=== PATIENT | female | born 2000 | race Caucasian/White ===

== ENCOUNTER 2024-08-11 14:56 | Outpatient (AMB) | payer OTHER, SELFPAY ==
--- NOTE | 2024-08-11 14:56 | MHC.OFFVIS ---
Vital Signs 08/11/24 15:44 Height 5 ft Weight 131 lb BMI 25.6 Intake Visit Reasons: pelvic pain/External Referral Warp Starter Required: No Warp Starter Services: Warp Starter Present Information Interpreted: clinical only Yoker Machine Operator: Yoker Machine Operator Present Allergies Penicillins [PENICILLINS] Allergy (Intermediate, Unverified 08/11/24 15:01) HIVES Medication List - Last Reviewed 08/11/24 by Jaleel Nicholson CMA acetazolamide 250 mg PO BID potassium chloride (Klor-Con) 20 mEq PO DAILY potassium chloride ER 10 mEq PO BID Is last menstrual period known: Yes Last menstrual period: 07/15/24 HPI HPI pelvic pain/External Referral: Details: Patient is here as a referral for 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 She is 23 years old not sexually active gets regular menses. She does have periodic pain on the left side and she has noticed that sometimes it is in between periods so in googling as she was wondering if it was connected to ovulation. She has a history of paralysis that is related to low potassium and whoever is with her needs to administer a little pack at potassium in order to bring it backup again. For this reason she has not been working. She is in the midst of trying to find new care provider's because she aged out of the previous ones she has a neurologist who she sees and she is working on finding a aluminum hydroxide process operator. She has never had a pelvic exam but she is open to it today she is not having any physical symptoms she feels she is due for her period any day now she is not experiencing pain side this month or now. She and her mother theorized the whole issue with the paralysis related to the potassium started after her 1st Gardasil shot which was also her last gardisil shot. [facility] Medical History (Updated 08/11/24 @ 16:22 by Cindy Ovalle CNM) Fatigue Night sweats Fibromyalgia Periodic paralysis Female Reproductive History Menstrual Age of Menarche: 11 Duration of menses: 3-5 days Date of last menstrual period: 07/15/24 control method: none Total pregnancies: 0 Physical Exam Vital Signs: Last Vital Signs BP 5/0 L 08/11/24 15:00 BMI result Body Mass Index 25.6 Const General: healthy appearing, comfortable, no acute distress, well developed and alert Nutritional Appearance: average body habitus Orientation/consciousness: patient oriented x3 Limitations: no limitations HEENT Head: Yes normocephalic Neck Neck: Yes normal visual inspection Chest Chest palpation & inspection: normal inspection of the chest Breast/axilla inspection: normal inspection of the breasts and normal inspection of the axillae Breast/axilla palpation: normal palpation of the breasts and normal palpation of the axillae Resp Effort & Inspection: normal respiratory effort GI Inspection: Yes normal to inspection, No Abdominal wall edema and No distended Palpation (GI): Soft to palpation and nontender Other: Normal external exam vagina pink And moist, discharge is white, consistent with luteal phase, unable to visualize cervix. Bimanual exam done cervix nulliparous posterior long closed thick mobile nontender. uterus midposition mobile nontender. no adnexal organomegaly for tenderness noted good tone with Kegel. General: Yes bladder normal to palpation External Female Exam: normal external appearance and normal appearance of the urethra Speculum Exam - Vagina: normal appearance of the vagina, normal palpation and normal vaginal discharge Speculum Exam - Cervix: normal appearance of the cervix, normal palpation and nontender Bimanual exam- vagina & uterus: normal bimanual exam, normal palpation, uterine size normal, bladder normal to palpation, consistency normal, normal palpation, uterine mobility normal, uterine shape normal, No Cervical tenderness present, non-tender and no cervical motion tenderness Bimanual Exam- Adnexa, other: normal adnexae, no masses, normal and No adnexal tenderness Neuro General: patient oriented x3 Assessment & Plan Assessment & Plan (1) Abdominal pain: Comment: Occasional, occasional midcycle usually on left side radiates to left ribs, not there currently nor in this month. No positive findings today offered ultrasound, she decided against it. Code(s): R10.9 - Unspecified abdominal pain Category: Medical (2) Well woman exam with routine gynecological exam: Code(s): Z01.419 - Encounter for gynecological examination (general) (routine) without abnormal findings Category: Medical (3) Cervical cancer screening: Comment: Patient not sexually active yet speculum exam done but unable to easily find cervix visually. Cervix nulliparous and Very easily found posterior with bimanual exam (but lubricant used for bimanual, so reschedule Pap smear Code(s): Z12.4 - Encounter for screening for malignant neoplasm of cervix Category: Medical (4) Periodic paralysis: Comment: Patient states symptoms started after 1st Gardasil shot, She has soon many specialists has test especially as teenager currently is on a daily diuretic as well as daily potassium with the additional K++ 10 meq powder supplementation if she experiences episodes of paralysis. It is life limiting. She is currently in search of new aluminum hydroxide process operator. Code(s): G72.3 - Periodic paralysis Category: Medical Plan Discussed what is usually done during the 1st bilingual teacher aide pelvic exam she was up to trying to have her 1st Pap smear done today so we did attempt it she was very relaxed during the visit but it was a little bit uncomfortable placing speculum posteriorly and I was not able to easily visualize her cervix. So bimanual was done and nulliparous cervix was extremely easily palpated posteriorly however since I had used lubricant on glove we will reschedule the pelvic exam and Pap smear for the future coming up. Since she only got the 1 Gardasil suggested seeking a partner who did get the full series when she decides to become sexually active and getting regular Pap smears once she starts. Discussed her challenging medical history and wished her well finding adult provider's and hopefully she will find a plan of care to minimize her episodes. She is not sexually active her periods are regular with the exception of missing 1 completely in May and once in a blue rincon that happens. She is not sexually active so she does not need anything for control. She perceives her periods is pretty normal lasting about 4-5 days with the 1st two being heavy, Discussed this seeming pattern that she has discovered that sometimes the pain that occurs on the left side is midcycle-- she has already postulated that it maybe related to ovulation, which could well be. discussed that if that was where the case, when it is radiating upwards it might have something to do with the tight waist band of her jeans, but this is just theoretical. discussed the other changes that occurr throughout the menstrual cycle that have various symptoms with our GI system as well. Discussed also the possibility may have something to do function cyst that was found but she does not remember which side it was found and she said that not too much was made of it at time either. In any case she is followed by her primary care provider and neurologist and is seeking care of a aluminum hydroxide process operator, having aged out of all her pediatric providers. rtc for bilingual teacher aide exam and 1st Pap smear Coding Level of Care Code New Pt Prev Care 18-39yr([id number] Diagnoses Abdominal pain R10.9 Well woman exam with routine gynecological exam Z01.419 Cervical cancer screening Z12.4 Periodic paralysis G72.3
[2024-08-11 15:44] VITALS: BMI 25.6
--- OUTSIDE RECORDS SUMMARY | 2024-08-11 15:55 | XMS_ITS | Encounter Summary ---
Author Organization [facility] Address [address] [place] [address] Phone Care Team Providers Care Head Piece Assembler Name Role Phone Dawit Andre MD Primary Care Provider [phone] Encounter Details Date Type Department Care Team (Late st Contact Info) Description 10/15/2016 Documentation [facility] [place] Family [place] [facility] [place] [address] Family Medicine, Physician [facility] [place], [place] [id number] Social History Tobacco Use Types Packs/Day Years Used Date Smoking Tobacco: Never Comments:Never smoker Comments Unknown Sex and Gender Information Value Date Recorded Sex Assigned at Not on file Legal Sex Female 6:20 PM EDT Gender Identity Not on file Sexual Orientation Not on file documented as of this encounter Plan of Treatment Not on file documented as of this encounter Visit Diagnoses Not on filedocumented in this encounter Care Teams Head Piece Assembler Relationship Specialty Start Date End Date Dawit Andre MD [address] [place] [address] [place] [id number] PCP - General Pediatrics 12/19/17 08/22/22 documented as of this encounter
--- OUTSIDE RECORDS SUMMARY | 2024-08-11 15:55 | XMS_ITS | Encounter Summary ---
Author Organization [facility] Address [address] [place] [id number] Phone Care Team Providers Care Specialty Transformer Assembler Name Role Phone Dawit Andre MD Primary Care Provider Encounter Details Date Type Department Care Team (Late st Contact Info) Description 02/07/2011 Conversion Encounter [facility] [address] [address] Social History Tobacco Use Types Packs/Day Years Used Date Smoking Tobacco: Never Assessed Comments Unknown Sex and Gender Information Value Date Recorded Sex Assigned at Not on file Legal Sex Female 6:20 PM EDT Gender Identity Not on file Sexual Orientation Not on file documented as of this encounter Plan of Treatment Not on file documented as of this encounter Visit Diagnoses Not on filedocumented in this encounter Care Teams Specialty Transformer Assembler Relationship Specialty Start Date End Date Dawit Andre MD [address] [facility] [place] [id number] PCP - General Pediatrics 12/19/17 08/22/22 documented as of this encounter
--- OUTSIDE RECORDS SUMMARY | 2024-08-11 15:55 | XMS_ITS | Encounter Summary ---
Author Organization [facility] Address [address] [place] [address] Phone Care Team Providers Care Concrete Form Setter And Finisher Name Role Phone Dawit Andre MD Primary Care Provider [phone] Encounter Details Date Type Department Care Team (Late st Contact Info) Description 08/03/2015 Documentation [facility] [place] [address] Family Medicine, Physician [facility] [place], [place] [address] Social History Tobacco Use Types Packs/Day Years [...] on filedocumented in this encounter Care Teams Concrete Form Setter And Finisher Relationship Specialty Start Date End Date Dawit Andre MD [address] [facility] [place] [address] PCP - General Pediatrics 12/19/17 08/22/22 documented as of this encounter
--- OUTSIDE RECORDS SUMMARY | 2024-08-11 15:55 | XMS_ITS | Encounter Summary ---
Author Organization [facility] Address [address] [place] [address] Phone Care Team Providers Care Overhead Foreman Name Role Phone Dawit Andre MD Primary Care Provider [phone] Encounter Details Date Type Department Care Team (Late st Contact Info) Description 02/07/2017 Conversion Encounter [facility] [place] [address] [place] [address] Social History Tobacco Use Types Packs/Day Years [...] on filedocumented in this encounter Care Teams Overhead Foreman Relationship Specialty Start Date End Date Dawit Andre MD [address] [place] [address] PCP - General Pediatrics 12/19/17 08/22/22 documented as of this encounter
--- OUTSIDE RECORDS SUMMARY | 2024-08-11 15:55 | XMS_ITS | Clinical Summary ---
Author Organization [employer] Address [address] [place] [address] Care Team Providers Care Signing Teacher Name Role Phone No, Pcp Primary Care Provider Unavailabl e Allergies Active Allergy Reactions Criticality Noted Date Comments Penicillins 02/16/2021 Shellfish Derived 02/16/2021 Medications acetaZOLAMIDE (DIAMOX) 250 mg tablet Take 250 mg by mouth twice a day. 08/11/2017 Active potassium chloride (KLOR-CON) 20 mEq packet Take 20 mEq by mouth. 11/23/2016 Active EPINEPHrine (EPIPEN) 0.3 mg/0.3 mL injection syringeIndicatio ns:Shellfish allergy Inject 0.3 mL (0.3 mg total) inject into thigh 1 (one) time for 1 dose. 0.3 mL 1 03/02/2021 Active Active Problems Problem Noted Date Diagnosed Date Tinea corporis 02/16/2021 Periodic paralysis 02/16/2021 Family History Relation Status Comments Father Alive Mother Alive Social History Tobacco Use Types Packs/Day Years Used Date Smoking Tobacco: Never Smokeless Tobacco: Never Alcohol Use Standard Drinks/Week Comments Yes 0 (1 standard drink = 0.6 oz pur e alcohol) PHQ-2 Answer Date Recorded Depression Risk (PHQ2) Score 0 Comments Unknown Sex and Gender Information Value Date Recorded Sex Assigned at Not on file Legal Sex Female 8:29 AM MST Gender Identity Not on file Sexual Orientation Not on file Last Filed Vital Signs Vital Sign Reading Time Taken Comments Blood Pressure 122/81 02/16/2021 11:49 AM EDT Pulse 95 02/16/2021 11:49 AM EDT Temperature 36.8 ??C (98.3 ??F) 02/16/2021 11:49 AM E DT Respiratory Rate - - Oxygen Saturation 98% 02/16/2021 11:49 AM EDT Inhaled Oxygen Concentration - - Weight 55 kg (121 lb 3.2 oz) 02/16/2021 11:49 AM EDT Height 152.9 cm (5' 0.2 ) 02/16/2021 11:49 AM ED T Body Mass Index 23.52 02/16/2021 11:49 AM EDT Plan of Treatment Health Maintenance Due Date Last Done Comments Hepatitis C Screening 1999 PHQ-9 Depression Screen 2011 HPV Vaccines (2 - 2-dose series) 08/14/2013 02/11/2013 Chlamydia/Gonorrhea Screen 11/26/2014 Annual Preventive Exam 11/26/2017 Complete Annual HRA 11/26/2017 PRISCILLA-7 Anxiety Screen 11/26/2017 Cervical Cancer Screening (Pap/HPV) 11/26/2020 DTaP,Tdap,and Td Vaccines (7 - Td or Tdap) 02/08/2021 02/08/2011, 01/04/2005, 06/02/2001, Additional history exists COVID-19 Vaccine ( - 2023- season) 2024 Influenza Vaccine (#1) 2024 2, 03/25/2010, 03/12/2009, Additional history exists RSV Vaccine (SCDM) (1 - 1-dose 75+ series) 11/26/2074 Meningococcal Vaccine Aged Out 02/07/2011 No michelle kobe eligible based on patient's age to complete this topic Insurance [employer] Care Teams Signing Teacher Relationship Specialty Start Date End Date No, Pcp PCP - General 02/16/21
--- OUTSIDE RECORDS SUMMARY | 2024-08-11 15:55 | XMS_ITS | Clinical Summary ---
Author Organization [facility] Address [address] [place] [phone] Phone Care Team Providers Care Market Risk Analyst Name Role Phone Unavailable Primary Care Provider Unavailabl e Allergies Active Allergy Reactions Criticality Noted Date Comments Amoxicillin-Pot Clavulanate Rash Low 08/15/2017 Penicillins Rash Low 03/05/2016 Other reaction(s): Rash/Dermatitis Shellfish Allergy Anaphylaxis,Swelling High 07/05/19 17 Medications acetaZOLAMIDE 250 MG tablet 8 Active potassium chloride 20 MEQ CR tablet 8 Active clonazePAM 0.25 MG disintegrating tablet Take 0.25 mg by mouth 2 times daily. 6 Active potassium chloride 20 MEQ packet Take 20 mEq by mouth. 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 Followed by Dr. Villar at [facility]. Currently treated with daily acetazolamide and PRN potassium for episodes. Immunizations Immunization Administration Dates Next Due DTaP 01/04/2005, 1,06/03/2000,04/01,01/29/2000 DTaP 5 01/04/2005, 1,06/03/2000,04/01,01/29/2000 HPV, Quadrivalent 02/11/2013,02/11/2013 Hep B, ped/adol 02/26/2001, 1,06/03/2000,06/03,1999,1999 HiB 02/26/2001,06/03/2000,04/01/2000 Hib (PRP-T) 02/26/2001, 0,04/01/2000,01/28,01/29/2000 IPV 01/04/2005, 5,06/02/2001,06/02,04/01/2000,04/01/2000,01/29/2000 ,01/29/2000 Influenza, injectable, quadrivalent 03/25/2010,0 03/11/2009,04/09/2008 Influenza, injectable, trivalent 010,03/12/2009,04/09/2008,04/21 Influenza, injectable, triva lent, preservative free 02/11/2012 MMR 01/04/2005, 5,12/09/2000,12/09 Meningococcal Conj (Menactra) MCV4P 02/07/2011 Pneumococcal Conjugate 02/26/2001,2000,06/03/2000,04/01 Pneumococcal Conjugate 13-Valent 001,09/02/2000,06/03/2000,04/01 Tdap 02/08/2011,02/08/2011 Varicella 02/07/2011, 1,12/09/2000,12/09 Family History Relation Name Status Comments Other No family histo ry of Migraines, Family history of Thyroid disease, No family history of Stroke, No family history of Obesity, Family history of Deafness, No family history of Seizure disorder, Family history of Coronary artery disease, No family history of ADD/ADHD, Family history of Asthma, No family history of Developmental dislocation of hip, No family history of Hyperlipidemia, No family history of Strabismus Social History Tobacco Use Types Packs/Day Years Used Date Smoking Tobacco: Never Smokeless Tobacco: Never Comments:Never smoker Comments Unknown Sex and Gender Information Value Date Recorded Sex Assigned at Not on file Legal Sex Female 6:20 PM EDT Gender Identity Not on file Sexual Orientation Not on file Last Filed Vital Signs Vital Sign Reading Time Taken Comments Blood Pressure 106/67 08/23/2017 4:08 PM EST Pulse 86 08/23/2017 4:08 PM EST Temperature 36.6 ??C (97.9 ??F) 08/23/2017 4:08 PM ES T Respiratory Rate - - Oxygen Saturation - - Inhaled Oxygen Concentration - - Weight 48.4 kg (106 lb 12.8 oz) 08/23/2017 4:08 PM EST Height 152.4 cm (5') 08/15/2017 5:12 PM EST Body Mass Index - - Plan of Treatment Health Maintenance Due Date Last Done Comments HPV Vaccines (2 - 2-dose series) 08/14/2013 02/11/2013, 02/11/2013 DTaP,Tdap,and Td Vaccines (8 - Td or Tdap) 02/08/2021 02/08/2011, 02/08/2011, 01/04/2005, Additional history exists Influenza Vaccines (#1) 2024 02/11/20 12, 03/25/2010, 03/25/2010, Additional history exists COVID-19 Vaccine ( season) 2024 HIB Vaccines Completed 02/26/2001, 10/2000, 06/03/2000, Additional history exists Hepatitis B Vaccines Completed 02/26/2001, 02/26/2001, 06/03/2000, Additional history exists Pneumococcal Vaccine Completed 02/26/2001, 02/26/2001, 09/02/2000, Additional history exists IPV Vaccines Completed 01/04/2005, 12/22, 06/02/2001, Additional history exists MMR Vaccines Completed 01/04/2005, 12/22, 12/09/2000, Additional history exists Meningococcal Vaccine Aged Out 02/07/2011 No michelle kobe eligible based on patient's age to complete this topic Varicella Vaccines Completed 02/07/2011, 0 02/07/2011, 12/09/2000, Additional history exists Hepatitis A Vaccines Aged Out No long er eligible based on patient's age to complete this topic Men B Vaccine Aged Out No longer elig ible based on patient's age to complete this topic
== END 2024-08-11 16:13 | disposition home or self-care (01) ==
PROVIDERS: PCP Physician Assistant; Visit Provider Advanced Practice Midwife
DX: Z01.419 Encounter for gynecological examination (general) (routine) without abnormal findings (principal); R10.9 Unspecified abdominal pain; G72.3 Periodic paralysis
CPT/HCPCS: 99385; 99459